=== PATIENT | male | born 1975 | race American Indian/Alaskan Native ===

== ENCOUNTER 2016-04-24 18:20 | Inpatient (IN) | payer OTHER ==
--- NOTE | 2016-04-24 18:32 | PDOC ---
Rapid Medical Evaluation Time Seen by Provider: 04/24/16 18:27 Medical Evaluation: Allergies Allergy/AdvReac Type Severity Reaction Status Date / Time No Known Allergies Allergy Verified 06/17/14 20:52 04/24/16 18:28 I have performed a brief in-person evaluation of this patient. The patient presents with a chief complaint of: lower abd pain w n/v x 5 hours. Had chicken salad 1/2 hr prior to onset Pertinent physical exam findings: vss I have ordered the following: cbc, comp, iv, ns, zofran The patient will proceed to the ED for further evaluation.
[2016-04-24] MEDS ORDERED: ONDANSETRON 4 MG/2 ML VIAL IVPUSH ONE (18:33)
[2016-04-24] MEDS ORDERED: SODIUM CHLORIDE 1,000 ML IV STA (18:33)
[2016-04-24] MEDS ORDERED: morphine CARPU-JECT 4 MG/1 ML DISP.SYRIN IVPUSH ONE ×2 (18:46→20:58)
[2016-04-24] MEDS ORDERED: ONDANSETRON 4 MG/2 ML VIAL ONE (18:47)
--- NOTE | 2016-04-24 18:48 | PDOC ---
History of Present Illness - General History Source: Patient Exam Limitations: No Limitations - History of Present Illness Initial Comments: 04/24/16 19:04 The patient is a 40 year old male, with a significant past medical history of hypertension and hyperlipidemia, who presents to the emergency department with nausea, vomiting and RLQ abdominal pain since approximately 3:30 PM this afternoon. The patient reports that he ate a salad for lunch and that his symptoms began shortly after. The patient reports multiple episodes of nonbloody nonbilious vomiting since this afternoon. The patient denies fever, chills, diarrhea, constipation or any dysuria. The patient is an employee of [employer]. Allergies: None reported. Past Surgical History: None reported. Social History: Non smoker. Denies alcohol or drug use. PCP: El Mathew <Haleigh Lopez - Last Filed: 04/25/16 01:54> - General History Source: Patient Exam Limitations: No Limitations <Juan M Orona - Last Filed: 04/25/16 02:00> - General Chief Complaint: Pain, Acute Stated Complaint: ABD PAIN Time Seen by Provider: 04/24/16 18:27 Past History <Haleigh Lopez - Last Filed: 04/25/16 01:54> - Past Medical History HTN: Yes Hypercholesterolemia: Yes - Immunization History Immunization Up to Date: Yes - Psycho/Social/Smoking Cessation Hx Anxiety: No Suicidal Ideation: No Smoking Status: No Smoking History: Never smoked Have you smoked in the past 12 months: No Number of Cigarettes Smoked Daily: 0 Information on smoking cessation initiated: No Hx Alcohol Use: No Drug/Substance Use Hx: No Substance Use Type: None <Juan M Orona - Last Filed: 04/25/16 02:00> - Past Medical History Allergies/Adverse Reactions: Allergies Allergy/AdvReac Type Severity Reaction Status Date / Time No Known Allergies Allergy Verified 04/24/16 18:30 Home Medications: Ambulatory Orders No Home Medications 0 dose .ROUTE UTDICT 02/14/12 Review of Systems - Review of Systems Able to Perform ROS?: Yes Comments:: 04/24/16 18:55 GENERAL/CONSTITUTIONAL: No fever or chills. No weakness. HEAD, EYES, EARS, NOSE AND THROAT: No change in vision. No ear pain or discharge. No sore throat. CARDIOVASCULAR: No chest pain or shortness of breath. RESPIRATORY: No cough, wheezing, or hemoptysis. GASTROINTESTINAL: +Nausea, vomiting, RLQ abdominal pain. No diarrhea or constipation. GENITOURINARY: No dysuria, frequency, or change in urination. MUSCULOSKELETAL: No joint or muscle swelling or pain. No neck or back pain. SKIN: No rash. NEUROLOGIC: No headache, vertigo, loss of consciousness, or change in strength/ sensation. ENDOCRINE: No increased thirst. No abnormal weight change. HEMATOLOGIC/LYMPHATIC: No anemia, easy bleeding, or history of blood clots. ALLERGIC/IMMUNOLOGIC: No hives or skin allergy. <Haleigh Lopez - Last Filed: 04/25/16 01:54> *Physical Exam - Vital Signs Last Vital Signs Temp Pulse Resp BP Pulse Ox 97.9 F 99 H 18 132/111 100 04/24/16 18:31 04/24/16 18:31 04/24/16 18:31 04/24/16 18:31 04/24/16 18:31 - Physical Exam Comments: 04/24/16 18:54 GENERAL: Uncomfortable appearing. Awake, alert, and fully oriented. HEAD: No signs of trauma. EYES: PERRLA, EOMI, sclera anicteric, conjunctiva clear. ENT: Auricles normal inspection, hearing grossly normal, nares patent, oropharynx clear without exudates. Moist mucosa. NECK: Normal ROM, supple, no lymphadenopathy, JVD, or masses. LUNGS: Breath sounds equal, clear to auscultation bilaterally. No wheezes, and no crackles. HEART: Regular rate and rhythm, normal S1 and S2, no murmurs, rubs or gallops. ABDOMEN: RLQ tenderness to palpation, suprapubic tenderness to palpation. Soft, normoactive bowel sounds. No guarding, no rebound. No masses. EXTREMITIES: Normal range of motion, no edema. No clubbing or cyanosis. No cords , erythema, or tenderness. NEUROLOGICAL: Cranial nerves II through XII intact. Normal speech, normal gait. SKIN: Warm, dry, normal turgor, no rashes or lesions noted. <Haleigh Lopez - Last Filed: 04/25/16 01:54> - Vital Signs Last Vital Signs Temp Pulse Resp BP Pulse Ox 97.9 F 99 H 18 132/111 100 04/24/16 18:31 04/24/16 18:31 04/24/16 18:31 04/24/16 18:31 04/24/16 18:31 <Juan M Orona - Last Filed: 04/25/16 02:00> ED Treatment Course - LABORATORY CBC & Chemistry Diagram: 04/24/16 18:50 04/25/16 01:10 <Haleigh Lopez - Last Filed: 04/25/16 01:54> - LABORATORY CBC & Chemistry Diagram: 04/24/16 18:50 04/25/16 01:10 - RADIOLOGY Radiology Studies Ordered: Category Date Time Status ABDOMEN & PELVIS CT WITH CONTR [CT] Stat CT Scan 04/24/16 18:46 Ordered <Juan M Orona - Last Filed: 04/25/16 02:00> Medical Decision Making - Medical Decision Making 04/24/16 23:37 EXAM: CT/ABDOMEN & PELVIS CT W/O CONTR Reviewed By: Dr. Chivo Still IMPRESSION: No inflammatory process identified in the abdomen or pelvis. No abdominal mass, adenopathy or collection seen. No obstructing urinary tract calculi or evidence of urinary tract obstruction seen. EXAM: CT/ABDOMEN & PELVIS CT W/O CONTR Reviewed By: Dr. Brandon Ceballos IMPRESSION: Stranding of the perinephric fat, bilaterally which is nonspecific and may be chronic. There is no evidence of hydroureteronephrosis, renal or ureteral stone, bilaterally. Mild stranding/mesenteric edema in the lower abdomen versus artifacts. Call placed to Dr. Mathew at 01:53. Connected and case discussed. <Haleigh Lopez - Last Filed: 04/25/16 01:54> - Medical Decision Making 04/24/16 18:47 A portion of this note was documented by scribe services under my direction. I have reviewed the details of the note, within reason, and agree with the documentation with the following case summary and management plan written by me. Patient treated in the ED. Nursing notes are reviewed and incorporated into the medical decision-making. Vital signs reviewed. Peripheral IV access obtained by the nurse, laboratory studies are drawn and sent, reviewed and interpreted by myself. Vital Signs Temp Pulse Resp BP Pulse Ox 97.9 F 99 H 18 132/111 100 04/24/16 18:31 04/24/16 18:31 04/24/16 18:31 04/24/16 18:31 04/24/16 18:31 40-year-old male with past medical history of hypertension, hyperlipidemia, employed at [employer], presents with lower abdominal pain with nausea and vomiting after eating salad today. Denies fevers, chills. Reports poor appetite. Denies diarrhea. Denies prior abdominal history. Differential includes acute appendicitis versus gastroenteritis versus food poisoning. We'll obtain labs, CAT scan abdomen pelvis, sent to control and reassess. 04/25/16 01:25 CBC, BMP 04/24/16 18:50 CMP Sodium 137 mmol/L (136-145) 04/24/16 18:50 Potassium 3.3 mmol/L (3.5-5.1) L 04/24/16 18:50 Chloride 100 mmol/L (98-107) 04/24/16 18:50 Carbon Dioxide 31 mmol/L (21-32) 04/24/16 18:50 Anion Gap 6 (8-16) L 04/24/16 18:50 BUN 24 mg/dL (7-18) H D 04/24/16 18:50 Creatinine 1.9 mg/dL (0.7-1.3) H D 04/24/16 18:50 Creat Clearance w eGFR 39.07 (>60) 04/24/16 18:50 Random Glucose 113 mg/dL (74-106) H 04/24/16 18:50 Calcium 8.9 mg/dL (8.5-10.1) 04/24/16 18:50 Magnesium 2.3 mg/dL (1.8-2.4) 04/24/16 18:50 Total Bilirubin 0.5 mg/dL (0.2-1.0) D 04/24/16 18:50 AST 24 U/L (15-37) 04/24/16 18:50 ALT 44 U/L (12-78) 04/24/16 18:50 Alkaline Phosphatase 51 U/L (45-117) 04/24/16 18:50 Total Protein 7.6 g/dl (6.4-8.2) 04/24/16 18:50 Albumin 4.2 g/dl (3.4-5.0) 04/24/16 18:50 Lipase 173 U/L (73-393) 04/24/16 18:50 Urine Test Results Urine Color Colorless 04/24/16 21:09 Urine Appearance Clear 04/24/16 21:09 Urine pH 6.0 (5.0-8.0) 04/24/16 21:09 Ur Specific Palms 1.003 (1.001-1.035) 04/24/16 21:09 Urine Protein 1+ (NEGATIVE) H 04/24/16 21:09 Urine Glucose (UA) Negative (NEGATIVE) 04/24/16 21: Urine Ketones Negative (NEGATIVE) 04/24/16 21: Urine Blood 1+ (NEGATIVE) H 04/24/16 21: Urine Nitrite Negative (NEGATIVE) 04/24/16 21: Urine Bilirubin Negative (NEGATIVE) 04/24/16 21:09 Ur Leukocyte Esterase Negative (NEGATIVE) 04/24/16 21:09 Urine RBC 1 /hpf (0-3) 04/24/16 21: Urine WBC <1 /hpf (3-5) 04/24/16 21:09 04/25/16 01:26 CT scan demonstrates stranding of the perinephric fat, bilaterally which is nonspecific and may be chronic. No evidence of hydroureteronephrosis, renal or ureteral stone, bilaterally. Mild stranding, mesenteric edema in the lower abdomen versus artifacts. There is no clear cut diagnosis to the patient's symptoms at this time. Perhaps it could be gastroenteritis. However, the most notable finding is the pt's cr is 1.9, concerning for acute renal injury. Perhaps this could be from hypovolemia 2/2 to vomiting. 2L of IVF was ordered and repeat CMP was ordered to reassess kidney function. If the creatinine remains elevated, we will admit the patient to the hospital for further evaluation. 04/25/16 01:59 Repeat Creatinine is 2.2 Case was discussed with Dr. Mathew. She accepts patient to her service for med/surg admission for acute renal insufficiency. Case discussed in detail with admitting physician including history, physical exam and ancillary studies. Admitting physician has assumed care for the patient, will follow all pending diagnostics and will complete the evaluation and treatment. <Juan M Orona - Last Filed: 04/25/16 02:00> *DC/Admit/Observation/Transfer - Attestations Scribe Attestion: 04/24/16 18:53 Documentation prepared by Haleigh Lopez, acting as biomedical equipment specialist for Juan M Orona MD. <Haleigh Lopez - Last Filed: 04/25/16 01:54> - Discharge Dispostion Admit: Yes <Juan M Orona - Last Filed: 04/25/16 02:00> Diagnosis at time of Disposition: Acute renal failure Qualifiers: Acute renal failure type: unspecified Qualified Code(s): N17.9 - Acute kidney failure, unspecified - Discharge Dispostion Condition at time of disposition: Stable - Referrals Referrals: Luis Daniel Mathew MD [Primary Care Provider] -
[2016-04-24] MEDS ORDERED: morphine CARPU-JECT 4 MG/1 ML DISP.SYRIN ONE ×2 (19:17→21:00)
[2016-04-24 19:28] LABS: ALBUMIN 4.2 g/dl (3.4-5.0); BILIRUBIN,TOTAL 0.5 mg/dL (0.2-1.0); CALCIUM 8.9 mg/dL (8.5-10.1); CREATININE 1.9 mg/dL (0.7-1.3); MAGNESIUM 2.3 mg/dL (1.8-2.4); TOT PROT 7.6 g/dl (6.4-8.2)
[2016-04-24 19:43] LABS: BASOPHIL 0.4 % (0-2.0); MCH 32.7 pg (25.7-33.7); MCHC 34.2 g/dl (32.0-35.9); MEAN CELL VOLUME 95.6 fl (80-96); MEAN PLT VOLUME 8.6 fl (7.5-11.1); NEUTROPHILS 73.2 % (42.8-82.8); PLATELET COUNT 209 K/MM3 (134-434); RDW 12.8 % (11.9-15.9); WHITE BLOOD COUNT 11.4 K/mm3 (4.0-10.0)
[2016-04-24 21:20] LABS: URINE APPEARANCE CLEAR; URINE BILIRUBIN NEGATIVE (NEGATIVE); URINE COLOR COLORLESS; URINE GLUCOSE (UA) NEGATIVE (NEGATIVE); URINE KETONE NEGATIVE (NEGATIVE); URINE LEUK ESTERASE NEGATIVE (NEGATIVE); URINE NITRITE NEGATIVE (NEGATIVE); URINE UROBILINOGEN NEGATIVE E.U./dl (0.2-1.0)
[2016-04-24 21:48] LABS: URINE BLOOD 1+ (NEGATIVE); URINE PROTEIN 1+ (NEGATIVE)
[2016-04-24 21:52] LABS: URINE RBC 1 /hpf (0-3); URINE WBC <1 /hpf (3-5)
[2016-04-25] MEDS ORDERED: SODIUM CHLORIDE 1,000 ML IV STA
[2016-04-25] MEDS ORDERED: ACETAMINOPHEN 1000 MG/100 ML VIAL (NON FORMULARY) IVPB ONE (00:22)
[2016-04-25] MEDS ORDERED: ACETAMINOPHEN INJECTION 100 ML IVPB ONE (00:28)
[2016-04-25] MEDS ORDERED: MAG HYDROX/AL HYDROX/SIMETH 30 ML UNIT-DOSE CUP PO ONE (01:27)
[2016-04-25] MEDS ORDERED: FAMOTIDINE 20 MG/50 ML IVPB 50 ML IVPB ONE ×2 (01:27→01:39)
[2016-04-25] MEDS ORDERED: MAG HYDROX/AL HYDROX/SIMETH 30 ML UNIT-DOSE CUP ONE (01:39)
[2016-04-25 01:46] LABS: ALBUMIN 3.4 g/dl (3.4-5.0); BILIRUBIN,TOTAL 0.6 mg/dL (0.2-1.0); CALCIUM 7.9 mg/dL (8.5-10.1); CREATININE 2.2 mg/dL (0.7-1.3); TOT PROT 6.2 g/dl (6.4-8.2)
[2016-04-25 04:23] VITALS: BMI 31.8
[2016-04-25] MEDS ORDERED: HYDROmorphone HCL CARPU-JECT 2 MG/1 ML DISP.SYRIN IVPB PRN (04:56)
[2016-04-25] MEDS ORDERED: POLYETHYLENE GLYCOL 3350 119 GM BTL PO PRN (04:56)
[2016-04-25] MEDS ORDERED: DEXTROSE 5%-0.45% SALINE 1,000 ML IV SCH (05:00)
[2016-04-25 09:40] LABS: MCH 32.8 pg (25.7-33.7); MCHC 34.1 g/dl (32.0-35.9); MEAN CELL VOLUME 96.2 fl (80-96); MEAN PLT VOLUME 8.3 fl (7.5-11.1); PLATELET COUNT 195 K/MM3 (134-434); RDW 12.2 % (11.9-15.9)
[2016-04-25 09:54] LABS: ALBUMIN 3.3 g/dl (3.4-5.0); BILIRUBIN,TOTAL 0.6 mg/dL (0.2-1.0); CALCIUM 7.9 mg/dL (8.5-10.1); CREATININE 2.4 mg/dL (0.7-1.3); TOT PROT 6.3 g/dl (6.4-8.2)
[2016-04-25] MEDS: amLODIPine BESYLATE 5 MG TABLET (FP) PO SCH (10:08)
--- NOTE | 2016-04-25 10:41 | CONSULT ---
Consult Consult Specialty:: Nephrology ( Drs. Butler/ blanca) Referred by:: Dr. Mathew Reason for Consultation:: 40 y/o male with h/o Hypertension, known to our service, admitted with severe acute abdominal pain, vomiting, and Acute Kidney failure. The patient went for Gym exercise yesterday after which he ate home- made salad, immediately followed by vomiting and acute abdominal pain. Vomiting did not improve the pain. he did not see any blood in the urine, but had bilateral abdominal and flank pains. No h/o ETOH, NSAIDS or any weight/ exercise related drugs - History of Present Illness Chief Complaint: Severe abdominal pain, voimiting, NISHA - History Source History Provided By: Patient, Medical Record Limitations to Obtaining History: No Limitations - Past Medical History Cardio/Vascular: Yes: HTN, Hyperlipdemia Pulmonary: No: Asthma, Bronchitis, Cancer, COPD, O2 Dependent, Pneumonia, Previously Intubated, Pulmonary Embolus, Pulmonary Fibrosis, Sleep Apnea, Other Gastrointestinal: Yes: Other (Severe acute abdominal pain) Renal/: Yes: Renal Failure Psych: No: Addictions Endocrine: Yes: Toombs's Disease. No: Diabetes Mellitus - Alcohol/Substance Use Hx Alcohol Use: No - Smoking History Smoking history: Never smoked Have you smoked in the past 12 months: No Aproximately how many cigarettes per day: 0 Home Medications - Allergies Allergies/Adverse Reactions: Allergies Allergy/AdvReac Type Severity Reaction Status Date / Time No Known Allergies Allergy Verified 04/24/16 18:30 - Home Medications Home Medications: Ambulatory Orders No Home Medications 0 dose .ROUTE UTDICT 02/14/12 Review of Systems - Review of Systems Constitutional: reports: Weakness Eyes: reports: No Symptoms Neck: reports: No Symptoms Cardiovascular: denies: Chest Pain, Shortness of Breath Respiratory: denies: Cough Gastrointestinal: reports: Abdominal Pain, Constipation, Vomiting Genitourinary: denies: Hematuria Musculoskeletal: reports: Back Pain Neurological: reports: Weakness Psychiatric: reports: Anxiety Physical Exam Vital Signs: Vital Signs Temperature 98.1 F 04/25/16 06:00 Pulse Rate 76 04/25/16 06:00 Respiratory Rate 18 04/25/16 06:00 Blood Pressure 149/99 04/25/16 06:00 O2 Sat by Pulse Oximetry (%) 99 04/25/16 04:26 Constitutional: Yes: Anxious, Mild Distress HENT: Yes: Normocephalic Neck: Yes: Trachea Midline Cardiovascular: Yes: Regular Rate and Rhythm, S1, S2 Respiratory: Yes: Regular, CTA Bilaterally, Diminished Gastrointestinal: Yes: Hypoactive Bowel Sounds, Tenderness (diffuse), Vomiting. No: Tenderness, Rebound Renal/: No: CVA Tenderness - Left, CVA Tenderness - Right, Hematuria, Oliguria Integumentary: Yes: WNL Neurological: Yes: Alert, Oriented Psychiatric: Yes: Alert, Oriented Labs: CBC, BMP 04/25/16 09:00 04/25/16 09:00 Problem List - Problems (1) Acute renal failure Code(s): N17.9 - ACUTE KIDNEY FAILURE, UNSPECIFIED Qualifiers: Acute renal failure type: unspecified Qualified Code(s): N17.9 - Acute kidney failure, unspecified (2) Abdominal pain Code(s): R10.9 - UNSPECIFIED ABDOMINAL PAIN (3) Vomiting Code(s): R11.10 - VOMITING, UNSPECIFIED (4) Hypertension Code(s): I10 - ESSENTIAL (PRIMARY) HYPERTENSION (5) Hyperlipidemia Code(s): E78.5 - HYPERLIPIDEMIA, UNSPECIFIED Assessment/Plan 40 y/o male with h/o long standing Hypertension, admitted with Acute abdominal pain, vomiting and Acute Kidney Injury. It is highly likely that the patient has NISHA from Hypovolemia and renal hypoperfusion due to the Hemodynamic changes. But need to r/o other etiologic factors that could cause NISHA in this setting . Plan: Hold Hyzaar for now. Will use other agents for the BP control. Basic w/u as ordered IV fluids to continue. Will monitor the renal and electrolyte profile with you. Thanks again Georgie Butler MD
[2016-04-25] MEDS ORDERED: D5-1/2NS+20 MEQ KCL - 1,000 ML IV SCH (11:00)
[2016-04-25] MEDS ORDERED: ONDANSETRON 4 MG/2 ML VIAL IVPB PRN (12:07)
[2016-04-25] MEDS: PANTOPRAZOLE SODIUM 40 MG/100 ML PRE-DOCKED IVPB SCH (13:13)
--- NOTE | 2016-04-25 14:35 | PN ---
Progress Note (short form) - Note Progress Note: GI CONSULTATION: SEE COMPLETE DICTATION IN BRIEF 40M NO GI HX HTN/HYPERLIPIDEMIA ADMIT WITYH ACUTE ONSET OF N/V/ABD PAIN AFTER VIGOROUS GYM W/O AND CHICKEN SALAD FOR LUNCH SUSPECT GI SYMPTOMS MAY BE DUE TO RENAL FINDINGS WITH NEAR DOUBLING OF HIS CREATININE OF BASELINE ABD EXAM BENIGN/ LFT WNL CT SCAN UNREMARKBLE FOR GI FINGINS DIVERTICULOSIS WITHOUT DIVERTICULITIS DOUBT AGE NO DIARRHEA ADVANCE DIET SLOWLY AND OBSERVE PPI OK IN THIS SETTING OUR TEAM T/F WITH YOU THANKS, MD DEAN
--- NOTE | 2016-04-25 14:42 | EKG ---
Test Reason : Blood Pressure : / mmHG Vent. Rate : 068 BPM Atrial Rate : 068 BPM P-R Int : 176 ms QRS Dur : 104 ms QT Int : 424 ms P-R-T Axes : 046 024 020 degrees QTc Int : 450 ms NORMAL SINUS RHYTHM NONSPECIFIC T WAVE ABNORMALITY Confirmed by ROBIN YEE MD ([id number]) on 04/25/2016 2:41:22 PM Referred By: Jeremiah CYR Confirmed By:ROBIN YEE MD
[2016-04-25 15:50] LABS: URINE APPEARANCE CLEAR; URINE BILIRUBIN NEGATIVE (NEGATIVE); URINE COLOR COLORLESS; URINE GLUCOSE (UA) NEGATIVE (NEGATIVE); URINE KETONE NEGATIVE (NEGATIVE); URINE LEUK ESTERASE NEGATIVE (NEGATIVE); URINE NITRITE NEGATIVE (NEGATIVE); URINE PROTEIN NEGATIVE (NEGATIVE); URINE UROBILINOGEN NEGATIVE E.U./dl (0.2-1.0)
[2016-04-25 15:57] LABS: URINE BLOOD 1+ (NEGATIVE)
--- NOTE | 2016-04-25 16:04 | CONSULT ---
Consult Consult Specialty:: Surgery Referred by:: Chioma Cary Reason for Consultation:: Abdominal pain, nausea and vomiting. - History of Present Illness History of Present Illness: 40 year old man , is admitted c/o periumbilical abdominal pain , since yesterday afternoon , radiating to the back, associated with nausea and vomiting. Denies any prior episode of abdominal pain. Denies any prior abdominal surgery. Pain is radiating to the back. - History Source History Provided By: Patient Limitations to Obtaining History: No Limitations - Past Medical History Cardio/Vascular: Yes: HTN, Hyperlipdemia Pulmonary: No: Asthma, Bronchitis, Cancer, COPD, O2 Dependent, Pneumonia, Previously Intubated, Pulmonary Embolus, Pulmonary Fibrosis, Sleep Apnea, Other Gastrointestinal: Yes: Other (Severe acute abdominal pain) Renal/: Yes: Renal Failure Psych: No: Addictions Endocrine: Yes: Saline's Disease. No: Diabetes Mellitus - Alcohol/Substance Use Hx Alcohol Use: Yes (Week ends, 2 drinks.) - Smoking History Smoking history: Never smoked Have you smoked in the past 12 months: No Aproximately how many cigarettes per day: 0 Home Medications - Allergies Allergies/Adverse Reactions: Allergies Allergy/AdvReac Type Severity Reaction Status Date / Time No Known Allergies Allergy Verified 04/24/16 18:30 - Home Medications Home Medications: Ambulatory Orders No Home Medications 0 dose .ROUTE UTDICT 02/14/12 Physical Exam Vital Signs: Vital Signs Temperature 98.4 F 04/25/16 14:00 Pulse Rate 69 04/25/16 14:00 Respiratory Rate 18 04/25/16 06:00 Blood Pressure 128/70 04/25/16 14:00 O2 Sat by Pulse Oximetry (%) 99 04/25/16 04:26 Gastrointestinal: Yes: Abdomen, Obese (Central abdominal pain , mild tenderness , no rebound.) Labs: CBC, BMP 04/25/16 09:00 04/25/16 09:00 Imaging - Results Cat Scan: Report Reviewed Problem List - Problems (1) Abdominal pain, periumbilical Code(s): R10.33 - PERIUMBILICAL PAIN (2) Nausea and vomiting Code(s): R11.2 - NAUSEA WITH VOMITING, UNSPECIFIED Qualifiers: Vomiting type: bilious vomiting Qualified Code(s): R11.14 - Bilious vomiting (3) Acute renal failure Code(s): N17.9 - ACUTE KIDNEY FAILURE, UNSPECIFIED Qualifiers: Acute renal failure type: unspecified Qualified Code(s): N17.9 - Acute kidney failure, unspecified (4) Hyperlipidemia Code(s): E78.5 - HYPERLIPIDEMIA, UNSPECIFIED (5) Hypertension Code(s): I10 - ESSENTIAL (PRIMARY) HYPERTENSION Assessment/Plan Abdominal pain , radiating to the back with nausea and vomiting. R/O gallbladder calculus, cholecystitis. Acute renal failure with rising Creatinine. / Passed a gallstone. Obesity. Will do gallbladder ultrasound, Hida scan. Treatment of renal failure.
[2016-04-25 16:06] LABS: URINE BACTERIA RARE /hpf (NONE SEEN); URINE MUCUS RARE; URINE RBC 1 /hpf (0-3); URINE WBC 2 /hpf (3-5)
[2016-04-26 07:48] LABS: BASOPHIL 0.5 % (0-2.0); EOSINOPHIL 1.1 % (0-4.5); MCH 33.1 pg (25.7-33.7); MCHC 34.7 g/dl (32.0-35.9); MEAN CELL VOLUME 95.4 fl (80-96); MEAN PLT VOLUME 8.4 fl (7.5-11.1); NEUTROPHILS 75.3 % (42.8-82.8); PLATELET COUNT 203 K/MM3 (134-434); RDW 12.5 % (11.9-15.9)
[2016-04-26 08:28] LABS: ALBUMIN 3.4 g/dl (3.4-5.0); CALCIUM 8.2 mg/dL (8.5-10.1); CREATININE 2.3 mg/dL (0.7-1.3); MAGNESIUM 2.5 mg/dL (1.8-2.4); PHOSPHOROUS 2.9 mg/dL (2.5-4.9)
[2016-04-26 08:31] LABS: BILIRUBIN,TOTAL 0.7 mg/dL (0.2-1.0); TOT PROT 6.5 g/dl (6.4-8.2)
--- NOTE | 2016-04-26 10:30 | PN ---
Progress Note, Physician Chief Complaint: The patient feels much better. Abdominal pain much better. Denies any vomiting. Started some liquid diet today. Tolerated well. Had one loose BM yesterday. No fever. Maintains good urine output. GI and surgical notes noted. - Current Medication List Current Medications: Active Medications Amlodipine Besylate (Norvasc -) 5 mg PO DAILY [facility] Last Admin: 04/25/16 10:08 Dose: 5 mg Hydromorphone HCl (Dilaudid Injection -) 2 mg IVPB Q6H PRN Last Admin: 04/25/16 05:15 Dose: 2 mg Potassium Chloride/Dextrose/Sod Cl (D5-1/2ns+20 Meq Kcl -) 1,000 mls @ 100 mls/ hr IV ASDIR [facility] Last Admin: 04/25/16 11:46 Dose: 100 mls/hr Ondansetron HCl (Zofran Injection) 4 mg IVPB Q4H PRN PRN Reason: NAUSEA AND/OR VOMITING Last Admin: 04/25/16 17:54 Dose: 4 mg Pantoprazole Sodium (Protonix 40mg Ivpb (Pre-Docked)) 40 mg IVPB DAILY [facility] Last Admin: 04/25/16 13:13 Dose: 40 mg Polyethylene Glycol (Miralax (For Daily Use) -) 17 gm PO DAILY PRN - Objective Vital Signs: Vital Signs Temperature 98.2 F 04/26/16 08:33 Pulse Rate 75 04/26/16 08:33 Respiratory Rate 20 04/26/16 08:33 Blood Pressure 136/81 04/26/16 08:33 O2 Sat by Pulse Oximetry (%) 99 04/25/16 09:00 Constitutional: Yes: Calm, Anxious, Mild Distress Eyes: Yes: WNL HENT: Yes: Atraumatic Cardiovascular: Yes: Regular Rate and Rhythm, S1, S2 Respiratory: Yes: Regular, CTA Bilaterally, Diminished Gastrointestinal: Yes: Normal Bowel Sounds, Soft Extremities: Yes: WNL Neurological: Yes: Alert, Oriented Psychiatric: Yes: Alert, Oriented Labs: CBC, BMP 04/26/16 06:15 04/26/16 06:15 Problem List - Problems (1) Acute renal failure Code(s): N17.9 - ACUTE KIDNEY FAILURE, UNSPECIFIED Qualifiers: Acute renal failure type: unspecified Qualified Code(s): N17.9 - Acute kidney failure, unspecified (2) Abdominal pain Code(s): R10.9 - UNSPECIFIED ABDOMINAL PAIN (3) Vomiting Code(s): R11.10 - VOMITING, UNSPECIFIED (4) Hypertension Code(s): I10 - ESSENTIAL (PRIMARY) HYPERTENSION (5) Hyperlipidemia Code(s): E78.5 - HYPERLIPIDEMIA, UNSPECIFIED Assessment/Plan 40 y/o male with h/o long standing Hypertension, admitted with Acute abdominal pain, vomiting and Acute Kidney Injury. So far no evidence of improvement of azotemia, but the azotemia iends to be plateauing. It is highly likely that the patient has NISHA from Hypovolemia and renal hypoperfusion due to the Hemodynamic changes. Work up so far negative.. Plan: Results of the sonographic studies awaited. IV fluids to continue. Will monitor the renal and electrolyte profile with you. Thanks again Georgie Butler MD
[2016-04-26] MEDS: PANTOPRAZOLE SODIUM 40 MG/100 ML PRE-DOCKED IVPB SCH (10:40)
[2016-04-26] MEDS: amLODIPine BESYLATE 5 MG TABLET (FP) PO SCH (10:41)
[2016-04-26] MEDS: D5-1/2NS+40 MEQ KCL - 1,000 ML IV SCH (13:22)
--- NOTE | 2016-04-26 13:45 | PN ---
Progress Note, Physician Chief Complaint: Pt lying comfortably in bed Abdominal pain improved,no vomiting Had bowel movement Ultrasound Result pending Creatinine level trending down - Current Medication List Current Medications: Active Medications Amlodipine Besylate (Norvasc -) 5 mg PO DAILY [facility] Last Admin: 04/26/16 10:41 Dose: 5 mg Hydromorphone HCl (Dilaudid Injection -) 2 mg IVPB Q6H PRN Last Admin: 04/25/16 05:15 Dose: 2 mg Dextrose/Sodium Chloride (D5-1/2ns+40 Meq Kcl -) 1,000 mls @ 75 mls/hr IV ASDIR [facility] Last Admin: 04/26/16 13:22 Dose: 75 mls/hr Ondansetron HCl (Zofran Injection) 4 mg IVPB Q4H PRN PRN Reason: NAUSEA AND/OR VOMITING Last Admin: 04/25/16 17:54 Dose: 4 mg Pantoprazole Sodium (Protonix 40mg Ivpb (Pre-Docked)) 40 mg IVPB DAILY [facility] Last Admin: 04/26/16 10:40 Dose: 40 mg Polyethylene Glycol (Miralax (For Daily Use) -) 17 gm PO DAILY PRN - Objective Vital Signs: Vital Signs Temperature 98.2 F 04/26/16 08:33 Pulse Rate 75 04/26/16 08:33 Respiratory Rate 20 04/26/16 08:33 Blood Pressure 136/81 04/26/16 08:33 O2 Sat by Pulse Oximetry (%) 100 04/26/16 09:00 Constitutional: Yes: No Distress Eyes: Yes: Conjunctiva Clear HENT: Yes: Atraumatic, Normocephalic Neck: Yes: WNL Cardiovascular: Yes: WNL Respiratory: Yes: Regular, CTA Bilaterally Gastrointestinal: Yes: Normal Bowel Sounds, Soft Musculoskeletal: Yes: WNL Extremities: Yes: WNL Edema: No Peripheral Pulses WNL: Yes Neurological: Yes: WNL, Alert, Oriented ...Motor Strength: WNL Psychiatric: Yes: WNL, Alert, Oriented Labs: CBC, BMP 04/26/16 06:15 04/26/16 06:15 - ....Imaging Ultrasound: Pending Assessment/Plan ARF ? due to dehdration Abdominal pain improved vomiting resolved HTN Hypercholestrolemia PLAN Hydration Monitor Creatinine Advance diet as tolerated will f/u renal rec will f/u sonogram report
[2016-04-26 14:23] LABS: URINE APPEARANCE CLEAR; URINE BILIRUBIN NEGATIVE (NEGATIVE); URINE BLOOD 2+ (NEGATIVE); URINE COLOR COLORLESS; URINE GLUCOSE (UA) NEGATIVE (NEGATIVE); URINE KETONE NEGATIVE (NEGATIVE); URINE LEUK ESTERASE NEGATIVE (NEGATIVE); URINE NITRITE NEGATIVE (NEGATIVE); URINE PROTEIN NEGATIVE (NEGATIVE); URINE UROBILINOGEN NEGATIVE E.U./dl (0.2-1.0)
[2016-04-26 14:27] LABS: URINE WBC 1 /hpf (3-5)
--- NOTE | 2016-04-26 18:54 | HP ---
DATE OF ADMISSION: 04/25/2016 Patient is a 40-year-old male with a past medical history of hypertension and hyperlipidemia, presented to the emergency department with the complaints of nausea, vomiting and right lower quadrant pain approximately 3:30 p.m. yesterday afternoon after he had a lunch of chicken salad and spinach. One hour after the lunch, patient reported multiple episodes of nonbloody bilious vomiting and abdominal pain with cramping. No urinary symptoms. Patient did not move the bowels yesterday. No fever. No history of any recent travel. No history of vomiting in the past. ALLERGIES: Nothing significant. SURGICAL HISTORY: Nothing significant. MEDICATIONS: Patient is on Hyzaar. MEDICAL HISTORY: Hypertension, hyperlipidemia. SOCIAL HISTORY: Nonsmoker. Denies alcohol and drugs. Patient lives with the family. REVIEW OF SYSTEMS: Constitutional: No fever, no chills, no weakness. Head and Neck: No changes in vision, no headache. Cardiovascular: No chest pain, no shortness of breath. Respiratory: No coughing, no wheezing. Gastrointestinal: Abdominal pain, nausea, vomiting. No diarrhea, mainly constipation present. Genitourinary: No history of any urinary frequency or dysuria. Musculoskeletal: Nothing significant. Neurological: No headache, no vertigo, no loss of consciousness. Endocrine: No history of any thirst. PHYSICAL EXAMINATION: Vital Signs: Temperature 97.9, pulse 76, blood pressure 149/99, respirations 18. Head and Neck: Normal. Neck: Supple. No JVD. Chest: Clear. Cardiovascular: First and second sounds normal. Abdomen: Soft. No tenderness, no distention. Bowel sounds present. Extremities: No edema. Central Nervous System: Alert, oriented x3. No apparent motor or sensory deficit. Reflex normal. Regarding labs, CBC: WBC 11.4, hemoglobin 13.8, hematocrit 40.4, platelets 209. Comprehensive panel: Sodium 137, potassium 3.3, chloride 100, bicarbonate 31, BUN 29, creatinine 1.9, sugar 113. ALT and AST normal. Lipase 173. Urine shows protein 1+, blood 1+, WBCs 1. On repeat labs, the comprehensive shows the sodium 139, potassium 3.6, chloride 104, bicarbonate 25, BUN 23, creatinine 2.2, sugar 121. AST and ALT normal. Patient admitted to the floor with the admitting diagnoses of: 1. Acute renal insufficiency. 2. Acute abdominal pain. 3. Constipation. CAT scan of the abdomen and pelvis done. It showed stranding of the perinephric fat, which is nonspecific. No nephrolithiasis. No renal or ureteric stone. Mild stranding and mesenteric edema in the lower abdomen versus artifact. PLAN: Patient kept n.p.o., repeat labs, IV fluid started. Renal, Gastroenterology, and Surgery consults called. Patient stable on the floor. Huber [id number]
[2016-04-27] MEDS: D5-1/2NS+40 MEQ KCL - 1,000 ML IV SCH ×2 (02:13→17:21)
--- NOTE | 2016-04-27 08:53 | PN ---
Progress Note, Physician Chief Complaint: Pt lying comfortably in bed c/o cough Abdominal pain improved,no vomiting Had bowel movement abdominal,renal and bladder ultrasound NL Creatinine level pending - Current Medication List Current Medications: Active Medications Amlodipine Besylate (Norvasc -) 5 mg PO DAILY [facility] Last Admin: 04/26/16 10:41 Dose: 5 mg Hydromorphone HCl (Dilaudid Injection -) 2 mg IVPB Q6H PRN Last Admin: 04/25/16 05:15 Dose: 2 mg Dextrose/Sodium Chloride (D5-1/2ns+40 Meq Kcl -) 1,000 mls @ 75 mls/hr IV [facility] Last Admin: 04/27/16 02:13 Dose: 75 mls/hr Ondansetron HCl (Zofran Injection) 4 mg IVPB Q4H PRN PRN Reason: NAUSEA AND/OR VOMITING Last Admin: 04/25/16 17:54 Dose: 4 mg Pantoprazole Sodium (Protonix 40mg Ivpb (Pre-Docked)) 40 mg IVPB DAILY [facility] Last Admin: 04/26/16 10:40 Dose: 40 mg Polyethylene Glycol (Miralax (For Daily Use) -) 17 gm PO DAILY PRN - Objective Vital Signs: Vital Signs Temperature 98.5 F 04/27/16 06:12 Pulse Rate 74 04/27/16 06:12 Respiratory Rate 20 04/27/16 06:12 Blood Pressure 148/92 04/27/16 06:12 O2 Sat by Pulse Oximetry (%) 100 04/26/16 21:00 Constitutional: Yes: No Distress Eyes: Yes: Conjunctiva Clear HENT: Yes: Atraumatic, Normocephalic Neck: Yes: WNL Cardiovascular: Yes: Regular Rate and Rhythm Respiratory: Yes: Regular, CTA Bilaterally Gastrointestinal: Yes: Normal Bowel Sounds, Soft Musculoskeletal: Yes: WNL Extremities: Yes: WNL Edema: No Peripheral Pulses WNL: Yes Neurological: Yes: WNL, Alert, Oriented ...Motor Strength: WNL Psychiatric: Yes: Alert, Oriented Assessment/Plan ARF ? due to dehdration Abdominal pain improved vomiting resolved HTN Hypercholestrolemia cough PLAN Hydration Monitor Creatinine NPO for HIDA scan will f/u renal rec chest x ray
[2016-04-27 09:04] LABS: ALBUMIN 3.3 g/dl (3.4-5.0); BILIRUBIN,TOTAL 0.6 mg/dL (0.2-1.0); CALCIUM 8.7 mg/dL (8.5-10.1); CREATININE 1.9 mg/dL (0.7-1.3); TOT PROT 6.4 g/dl (6.4-8.2)
[2016-04-27 09:07] LABS: BASOPHIL 0.5 % (0-2.0); EOSINOPHIL 1.4 % (0-4.5); MCH 32.5 pg (25.7-33.7); MCHC 33.8 g/dl (32.0-35.9); MEAN CELL VOLUME 96.3 fl (80-96); MEAN PLT VOLUME 8.4 fl (7.5-11.1); NEUTROPHILS 68.9 % (42.8-82.8); PLATELET COUNT 201 K/MM3 (134-434); RDW 12.2 % (11.9-15.9); WHITE BLOOD COUNT 7.3 K/mm3 (4.0-10.0)
[2016-04-27] MEDS: PANTOPRAZOLE SODIUM 40 MG/100 ML PRE-DOCKED IVPB SCH (10:43)
[2016-04-27] MEDS: amLODIPine BESYLATE 5 MG TABLET (FP) PO SCH (10:43)
[2016-04-27 13:09] LABS: URINE CREATININE 51.5 mg/dL
--- NOTE | 2016-04-27 13:47 | PN ---
Progress Note, Physician - Current Medication List Current Medications: Active Medications Amlodipine Besylate (Norvasc -) 5 mg PO DAILY [facility] Last Admin: 04/27/16 10:43 Dose: 5 mg Hydromorphone HCl (Dilaudid Injection -) 2 mg IVPB Q6H PRN Last Admin: 04/25/16 05:15 Dose: 2 mg Dextrose/Sodium Chloride (D5-1/2ns+40 Meq Kcl -) 1,000 mls @ 75 mls/hr IV ASDIR [facility] Last Admin: 04/27/16 02:13 Dose: 75 mls/hr Ondansetron HCl (Zofran Injection) 4 mg IVPB Q4H PRN PRN Reason: NAUSEA AND/OR VOMITING Last Admin: 04/25/16 17:54 Dose: 4 mg Pantoprazole Sodium (Protonix 40mg Ivpb (Pre-Docked)) 40 mg IVPB DAILY [facility] Last Admin: 04/27/16 10:43 Dose: 40 mg Polyethylene Glycol (Miralax (For Daily Use) -) 17 gm PO DAILY PRN - Objective Vital Signs: Vital Signs Temperature 98.5 F 04/27/16 10:00 Pulse Rate 84 04/27/16 10:00 Respiratory Rate 18 04/27/16 10:00 Blood Pressure 151/87 04/27/16 10:00 O2 Sat by Pulse Oximetry (%) 99 04/27/16 09:00 Labs: CBC, BMP 04/27/16 06:15 04/27/16 06:15 Problem List - Problems (1) Abdominal pain, periumbilical Code(s): R10.33 - PERIUMBILICAL PAIN (2) Nausea and vomiting Code(s): R11.2 - NAUSEA WITH VOMITING, UNSPECIFIED Qualifiers: Vomiting type: bilious vomiting Qualified Code(s): R11.14 - Bilious vomiting (3) Acute renal failure Code(s): N17.9 - ACUTE KIDNEY FAILURE, UNSPECIFIED Qualifiers: Acute renal failure type: unspecified Qualified Code(s): N17.9 - Acute kidney failure, unspecified (4) Hyperlipidemia Code(s): E78.5 - HYPERLIPIDEMIA, UNSPECIFIED (5) Hypertension Code(s): I10 - ESSENTIAL (PRIMARY) HYPERTENSION Assessment/Plan surgery: Patient is comfortable, has pain in abdomen on coughing. Abdomen is soft , not tender. Gallbladder ultrasound is normal, no gallstones, normal size common bile duct, no signs of cholecystitis. Will cancel HIDA scan. Creatinine 1.9 He is being hydrated. No acute surgical condition , contributing for the abdominal pain. Consider upper endoscopy when stable. discussed with Dr. Mathew.
[2016-04-27] MEDS ORDERED: amLODIPine BESYLATE 5 MG TABLET (FP) PO ONE (15:00)
--- NOTE | 2016-04-27 16:37 | PN ---
GI Progress Note Subjective: No acute events No abdominal pain Presented as N/V/D which have resolved - Objective Vital Signs: Vital Signs Temperature 98.6 F 04/27/16 14:49 Pulse Rate 63 04/27/16 14:49 Respiratory Rate 18 04/27/16 14:49 Blood Pressure 140/96 04/27/16 14:49 O2 Sat by Pulse Oximetry (%) 99 04/27/16 09:00 Constitutional: Calm Eyes: No: Sclera Icterus Cardiovascular: Yes: Regular Rate and Rhythm Respiratory: Yes: CTA Bilaterally Gastrointestinal Inspection: No: Distention ...Auscultate: Yes: Normoactive Bowel Sounds ...Palpate: No: Tenderness Edema: No Neurological: Yes: Alert, Oriented Labs: CBC, BMP 04/27/16 06:15 04/27/16 06:15 Problem List - Problems (1) Gastroenteritis Assessment/Plan: With dehydration. Renal function improving and being evaluated by renal Symptomatically improved Continue advancement of diet as tolerated and monitor clinically recall as needed Code(s): K52.9 - NONINFECTIVE GASTROENTERITIS AND COLITIS, UNSPECIFIED
--- NOTE | 2016-04-27 16:51 | PN ---
Progress Note (short form) - Note Progress Note: Renal Follow up for NISHA Pt seen and examined at the bedside no acute compalints no further N/V had loose BM this am no sob or chest pain tolerating diet Vital Signs Temperature 99.6 F 04/27/16 17:22 Pulse Rate 66 04/27/16 17:22 Respiratory Rate 20 04/27/16 17:22 Blood Pressure 145/84 04/27/16 17:22 O2 Sat by Pulse Oximetry (%) 99 04/27/16 09:00 Gen: NAD, wake and alert HEENT: NC/AT, MMM, No JVD CVS: RRR Lungs: CTA Abd: soft NT/ND ext: no edema CBC, BMP 04/27/16 06:15 04/27/16 06:15 Current Medications Amlodipine Besylate (Norvasc -) 10 mg PO DAILY [facility] Guaifenesin (Robitussin -) 10 ml PO Q6H PRN Last Admin: 04/27/16 17:36 Dose: 10 ml Hydromorphone HCl (Dilaudid Injection -) 2 mg IVPB Q6H PRN Last Admin: 04/25/16 05:15 Dose: 2 mg Dextrose/Sodium Chloride (D5-1/2ns+40 Meq Kcl -) 1,000 mls @ 75 mls/hr IV ASDIR [facility] Last Admin: 04/27/16 17:21 Dose: 75 mls/hr Ondansetron HCl (Zofran Injection) 4 mg IVPB Q4H PRN PRN Reason: NAUSEA AND/OR VOMITING Last Admin: 04/25/16 17:54 Dose: 4 mg Pantoprazole Sodium (Protonix 40mg Ivpb (Pre-Docked)) 40 mg IVPB DAILY [facility] Last Admin: 04/27/16 10:43 Dose: 40 mg Polyethylene Glycol (Miralax (For Daily Use) -) 17 gm PO DAILY PRN A/P 40 year old [place] with PMhx of HTN presented with complaints of Abd pain and N/V and found to have NISHA. #Acute Kidney injury secondary to volume contraction + ARB Renal function with mild improvement on IVF continue current fluids for additional 24 hours check urine studies for feNa, UPCR Avoid NSAIDS, FRANCO/ARB for now Trend BUN/cr and electrolytes PO diet as tolerated Bang Etienne DO
[2016-04-27] MEDS: guaiFENesin 200 MG/10 ML 10 ML UNIT-DOSE CUPS PO PRN (17:36)
[2016-04-28] MEDS: D5-1/2NS+40 MEQ KCL - 1,000 ML IV SCH (06:33)
[2016-04-28 07:59] LABS: BASOPHIL 0.7 % (0-2.0); EOSINOPHIL 2.2 % (0-4.5); MCH 32.9 pg (25.7-33.7); MCHC 34.5 g/dl (32.0-35.9); MEAN CELL VOLUME 95.5 fl (80-96); MEAN PLT VOLUME 8.1 fl (7.5-11.1); NEUTROPHILS 68.6 % (42.8-82.8); PLATELET COUNT 221 K/MM3 (134-434); RDW 11.9 % (11.9-15.9); WHITE BLOOD COUNT 6.2 K/mm3 (4.0-10.0)
[2016-04-28] MEDS: amLODIPine BESYLATE 10 MG TABLET (FP) PO SCH ×2 (08:20→11:30)
[2016-04-28] MEDS: guaiFENesin 200 MG/10 ML 10 ML UNIT-DOSE CUPS PO PRN (08:20)
[2016-04-28 08:30] LABS: ALBUMIN 3.4 g/dl (3.4-5.0); BILIRUBIN,TOTAL 0.4 mg/dL (0.2-1.0); CALCIUM 9.1 mg/dL (8.5-10.1); CREATININE 1.6 mg/dL (0.7-1.3); PHOSPHOROUS 4.2 mg/dL (2.5-4.9); TOT PROT 6.6 g/dl (6.4-8.2)
[2016-04-28] MEDS: PANTOPRAZOLE SODIUM 40 MG/100 ML PRE-DOCKED IVPB SCH (09:29)
--- NOTE | 2016-04-28 10:17 | PN ---
Progress Note (short form) - Note Progress Note: Renal Follow up for NISHA Pt seen and examined at the bedside no acute compalints Vital Signs Temperature 99 F 04/28/16 07:51 Pulse Rate 66 04/28/16 07:51 Respiratory Rate 20 04/28/16 07:51 Blood Pressure 150/89 04/28/16 07:51 O2 Sat by Pulse Oximetry (%) 99 04/27/16 21:00 Intake & Output 04/25/16 04/26/16 04/27/16 04/28/16 22:59 23:59 23:59 23:59 Intake Total 2275 900 Balance 2275 900 Weight Gen: NAD, wake and alert HEENT: NC/AT, MMM, No JVD CVS: RRR Lungs: CTA Abd: soft NT/ND ext: no edema CBC, BMP 04/28/16 06:30 04/28/16 06:30 Current Medications Amlodipine Besylate (Norvasc -) 10 mg PO DAILY [facility] Last Admin: 04/28/16 08:20 Dose: 10 mg Guaifenesin (Robitussin -) 10 ml PO Q6H PRN Last Admin: 04/28/16 08:20 Dose: 10 ml Hydromorphone HCl (Dilaudid Injection -) 2 mg IVPB Q6H PRN Last Admin: 04/25/16 05:15 Dose: 2 mg Ondansetron HCl (Zofran Injection) 4 mg IVPB Q4H PRN PRN Reason: NAUSEA AND/OR VOMITING Last Admin: 04/25/16 17:54 Dose: 4 mg Pantoprazole Sodium (Protonix 40mg Ivpb (Pre-Docked)) 40 mg IVPB DAILY [facility] Last Admin: 04/28/16 09:29 Dose: 40 mg Polyethylene Glycol (Miralax (For Daily Use) -) 17 gm PO DAILY PRN A/P 40 year old [place] with PMhx of HTN presented with complaints of Abd pain and N/V and found to have NISHA. #Acute Kidney injury secondary to volume contraction + ARB Renal function improving maintain off ARB for now d/c IVF today as pt is tolerating oral diet will follow up in the office on discharge #Hypertension BP slightly above gaol continue amlodpine for now if remains elevated can add BB like atenolol ok for discharge from renal perspective with outpatient follow up Bang Etienne DO
--- NOTE | 2016-04-28 11:20 | CONS ---
DATE OF CONSULTATION: 04/25/2016 GASTROENTEROLOGY CONSULTATION HISTORY OF PRESENT ILLNESS: I was asked by Dr. Juan M Orona to evaluate the patient for abdominal pain and vomiting. The patient is a 40-year-old male from [place] who has a past medical history of hypertension and hyperlipidemia. He says he has had no prior GI distress or GI issues in the past. Apparently yesterday after lunch, about an hour after eating some chicken salad, he had the onset of hypogastric abdominal pain, nausea, and onset of vomiting. He did not have any fevers, chills, or sweats. He did not have any diarrhea. He did not have any black, tarry stools or hematemesis. He then had pain that radiated to each side and to the left flank and the right flank and over to the back. He was very uncomfortable and because he could not keep food down and kept vomiting, he came to the hospital for evaluation. It is noted that when he came to the hospital he had tenderness on exam and elevated white count and significant renal insufficiency. He had also reported that prior to his eating lunch when he had the chicken salad and got sick, he had been in the gym that morning and had been doing a lot of abdominal crunches, and he had a hard workup, and he questioned whether that also could have been the trigger. Otherwise, as I said, the patient does not have longstanding gastrointestinal complaints. He is not usually constipated or having heartburn. He has never had endoscopy or colonoscopy. He has had no significant prior surgery. He has no known drug allergies, and he cannot remember the names of his medications, but he takes something for blood pressure and something for cholesterol as his only medication. He did not take significant aspirin or nonsteroidals. SOCIAL HISTORY: The patient does not smoke. He socially uses alcohol. 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 FAMILY HISTORY: His family history is significant for his mother has heartburn, is the only GI type of complaint. MEDICATION: It looks like here in the hospital, he is currently getting Zofran, Miralax, Norvasc, Dilaudid, Protonix, and IV fluid. PHYSICAL EXAMINATION: Vital signs: He is afebrile, and it appears he has been afebrile throughout the course. He is not tachycardic. His heart rate is 76, his blood pressure is 150/90. General: He is well-developed, well-nourished, healthy-appearing, in no acute distress. Skin: Skin is cool. HEENT: Sclerae anicteric. Neck: Supple. His mouth is kind of dry. His dentition is good. His neck is supple . Abdomen: A little obese, but very soft, and there is no focal tenderness to deep palpation. No masses, rebound, or guarding. Rectal: Reveals the presence of stool that is darkish brown and guaiac negative on my check. LABORATORY DATA: When he came in, as I said his white count was slightly elevated. Today it is down to 9. His hemoglobin and hematocrit of 12.9 over 37.9. He has got an MCV of 96, and 195,000 platelets. Of note, on admission, the white count was 11.4. His chemistries, when he came in his BUN was 24, creatinine 1.9, but then went to 23/2.2, and today his BUN is 21 with a creatinine of 2.4. Otherwise, his liver enzymes are essentially unremarkable. AST 21, ALT 32, alkaline phosphatase 49. His albumin 3.3, the lipase level 200. Other labs that he had when he came in his urinalysis revealed 1+ protein and 1+ blood and was otherwise unremarkable, and it looks like he had a CT scan of the abdomen and pelvis, but this is a very limited study, as it appears it was a stone study, as there was oral contrast but no IV contrast, which certainly limits it from a GI standpoint, but the bowel looked okay. Apparently there was some distention of the stomach without wall thickening. The esophagus appeared a little thickened, but again on the CAT scan this is very tough to assess whether that is just artifact. The liver, spleen, pancreas, gallbladder, adrenals were completely unremarkable. The bowel appeared unremarkable. He had some diverticulosis without evidence of diverticulitis. There was no evidence of an acute fluid collection. There is no fluid in the paracolic gutters, so overall it is really an unremarkable scan. IMPRESSION: It is my impression that the patient is a 40-year-old gentleman with hypertension and hyperlipidemia who comes in with acute onset of hypogastric pain and vomiting after he had eaten some chicken salad, but also after he had a vigorous workout at the gym, and also his CPK was elevated. It is unclear and he came in with significant renal insufficiency or significant worsening of his underlying renal function. It is unclear whether his gastrointestinal symptoms are secondary to the renal findings, or whether he did have some gastrointestinal distress. It does not appear like a typical gastroenteritis because he never ended up having any diarrhea. He moved his bowels this morning normally today, so at the present time he certainly has a nontoxic abdomen, and I would just observe and suspect that as his renal function improves, gastrointestinal symptoms should resolve. As I said, the vomiting may simply have been due to the doubling or nearly tripling of his baseline creatinine. So for now I would slowly advance his diet and observe, continue Flowtron pump inhibition, and we will be available for further management. AUSTIN MORAN M.D. [id number]
--- NOTE | 2016-04-28 12:09 | PN ---
GI Progress Note Subjective: GI Note> Tolerating solids. NO recurrence of pain or vomiting but BP is elevated. - Objective Vital Signs: Vital Signs Temperature 98.8 F 04/28/16 08:00 Pulse Rate 66 04/28/16 08:00 Respiratory Rate 18 04/28/16 08:00 Blood Pressure 163/91 04/28/16 10:00 O2 Sat by Pulse Oximetry (%) 99 04/28/16 08:00 Current Medications Generic Name Dose Route Start Last Admin Trade Name Freq PRN Reason Stop Dose Admin Amlodipine Besylate 10 mg 04/28/16 10:00 04/28/16 11:30 Norvasc - PO Not Given DAILY [facility] Guaifenesin 10 ml 04/27/16 17:29 04/28/16 08:20 Robitussin - PO 10 ml Q6H PRN Administration Hydromorphone HCl 2 mg 04/25/16 04:56 04/25/16 05:15 Dilaudid Injection - IVPB 2 mg Q6H PRN Administration Ondansetron HCl 4 mg 04/25/16 12:07 04/25/16 17:54 Zofran Injection IVPB 4 mg Q4H PRN Administration NAUSEA AND/OR VOMITING Pantoprazole Sodium 40 mg 04/25/16 12:15 04/28/16 09:29 Protonix 40mg Ivpb (Pre-Docked) IVPB 40 mg DAILY [facility] Administration Polyethylene Glycol 17 gm 04/25/16 04:56 Miralax (For Daily Use) - PO DAILY PRN Constitutional: Calm Cardiovascular: Yes: Regular Rate and Rhythm Respiratory: Yes: CTA Bilaterally Gastrointestinal Inspection: Yes: Distention ...Palpate: Yes: Soft, Other (nontender) Labs: CBC, BMP 04/28/16 06:30 04/28/16 06:30 Assessment/Plan Resolved gastric upset. No GI objections to discharge.
[2016-04-28] MEDS: ATENOLOL 25 MG TABLET (FP) PO SCH (14:10)
[2016-04-29 07:21] VITALS: PULSE 69
[2016-04-29 08:42] LABS: ALBUMIN 3.8 g/dl (3.4-5.0); CALCIUM 9.8 mg/dL (8.5-10.1)
[2016-04-29 08:44] LABS: BILIRUBIN,TOTAL 0.5 mg/dL (0.2-1.0); CREATININE 1.6 mg/dL (0.7-1.3); TOT PROT 7.7 g/dl (6.4-8.2)
--- NOTE | 2016-04-29 09:09 | PN ---
Progress Note, Physician Chief Complaint: Pt lying comfortably in bed Pt toleratsd food No abdominal pain,had bowel movement abdominal,renal and bladder ultrasound NL Creatinine level stable D/c home today - Current Medication List Current Medications: Active Medications Amlodipine Besylate (Norvasc -) 10 mg PO DAILY [facility] Last Admin: 04/28/16 11:30 Dose: Not Given Atenolol (Tenormin -) 12.5 mg PO DAILY [facility] Last Admin: 04/28/16 14:10 Dose: 12.5 mg Guaifenesin (Robitussin -) 10 ml PO Q6H PRN Last Admin: 04/28/16 08:20 Dose: 10 ml Hydromorphone HCl (Dilaudid Injection -) 2 mg IVPB Q6H PRN Last Admin: 04/25/16 05:15 Dose: 2 mg Ondansetron HCl (Zofran Injection) 4 mg IVPB Q4H PRN PRN Reason: NAUSEA AND/OR VOMITING Last Admin: 04/25/16 17:54 Dose: 4 mg Pantoprazole Sodium (Protonix -) 40 mg PO DAILY [facility] Polyethylene Glycol (Miralax (For Daily Use) -) 17 gm PO DAILY PRN - Objective Vital Signs: Vital Signs Temperature 98.5 F 04/29/16 07:20 Pulse Rate 69 04/29/16 07:20 Respiratory Rate 20 04/29/16 07:20 Blood Pressure 154/88 04/29/16 07:20 O2 Sat by Pulse Oximetry (%) 99 04/28/16 21:00 Constitutional: Yes: No Distress Eyes: Yes: Conjunctiva Clear HENT: Yes: Atraumatic, Normocephalic Neck: Yes: Supple, Trachea Midline Cardiovascular: Yes: Regular Rate and Rhythm Respiratory: Yes: Regular, CTA Bilaterally Gastrointestinal: Yes: Normal Bowel Sounds, Soft Musculoskeletal: Yes: WNL Extremities: Yes: WNL Edema: No Peripheral Pulses WNL: Yes Neurological: Yes: Alert, Oriented ...Motor Strength: WNL Labs: CBC, BMP 04/28/16 06:30 04/29/16 06:10 Assessment/Plan ARF improved Abdominal pain improved vomiting resolved HTN Hypercholestrolemia PLAN d/c home continue medications f/u with nephrology and pmd rpt labs in 1 wk
[2016-04-29 09:33] VITALS: BP 141/86; TEMP 98.4
[2016-04-29] MEDS: ATENOLOL 25 MG TABLET (FP) PO SCH (09:46)
[2016-04-29] MEDS: amLODIPine BESYLATE 10 MG TABLET (FP) PO SCH (09:46)
[2016-04-29] MEDS ORDERED: PANTOPRAZOLE 40 MG TABLET (FP) PO SCH (10:00)
--- NOTE | 2016-04-29 13:24 | EKG ---
Test Reason : Blood Pressure : / mmHG Vent. Rate : 066 BPM Atrial Rate : 066 BPM P-R Int : 180 ms QRS Dur : 100 ms QT Int : 416 ms P-R-T Axes : 056 034 022 degrees QTc Int : 436 ms NORMAL SINUS RHYTHM NONSPECIFIC T WAVE ABNORMALITY ABNORMAL ECG WHEN COMPARED WITH ECG OF 17-JUN-2014 21:15, NO SIGNIFICANT CHANGE WAS FOUND Confirmed by BRYSON RABAGO MD ([id number]) on 04/29/2016 1:24:30 PM Referred By: Confirmed By:BRYSON RABAGO MD
== END 2016-04-29 09:51 | disposition home or self-care (01) | DRG 684 ==
LOC: JER 18:20 → JERBED 04-25 02:01 → J8W 04-25 03:29
PROVIDERS: ADMIT Family Medicine; ATTEND Family Medicine
DX: N17.9 Acute kidney failure, unspecified (principal); R10.9 Unspecified abdominal pain; I10 Essential (primary) hypertension; E78.5 Hyperlipidemia, unspecified; E86.0 Dehydration; K52.9 Noninfective gastroenteritis and colitis, unspecified; R11.2 Nausea with vomiting, unspecified
CPT/HCPCS: 36415; 71020-TC; 74176-TC; 76705-TC; 76775-TC; 76856-TC; 80053; 81003; 81015; 82150; 82550; 82553; 82570; 83690; 83735; 84100; 84156; 84300; 84550; 85025; 85027; 87086; 93005; 93010; 99284-25; Q9967

== ENCOUNTER 2016-05-14 14:30 | Emergency (ER) | payer OTHER ==
[2016-05-14 14:35] VITALS: BP 134/76; PULSE 90; TEMP 98.8; BMI 29.6
--- NOTE | 2016-05-14 14:54 | PDOC ---
History of Present Illness - General Chief Complaint: Pain Stated Complaint: BAD COUGH Time Seen by Provider: 05/14/16 14:35 - History of Present Illness Initial Comments: 05/14/16 14:53 CHIEF COMPLAINT: cough HISTORY OF PRESENT ILLNESS: 40 yo M with hx of HTN, HLD, and recent acute kidney failure presents to fast track with cough x 2 days. Patient denies fever but reports chills and throat pain. Denies nausea, vomiting, diarrhea. He has taken Nyquil and "herbal medicine" with no relief. No recent travel or sick contacts. PAST MEDICAL HISTORY: Denies past medical history FAMILY HISTORY: Denies SOCIAL HISTORY: Denies tobacco, alcohol, illicit drug use. SURGICAL HISTORY: Denies ALLERGIES: No known drug allergies REVIEW OF SYSTEMS General/Constitutional: Denies fever or chills. Denies weakness, weight change. HEENT: Denies change in vision. Denies ear pain or discharge. Denies sore throat. Cardiovascular: Denies chest pain or shortness of breath. Respiratory: Dry cough x 2 days. Denies wheezing, or hemoptysis. Gastrointestinal: Denies nausea, vomiting, diarrhea or constipation. Denies rectal bleeding. Genitourinary: Denies dysuria, frequency, or change in urination. Musculoskeletal: Denies joint or muscle swelling or pain. Denies neck or back pain. Skin and breasts: Denies rash or easy bruising. PHYSICAL EXAM General Appearance: Well-appearing, appropriately dressed. No apparent distress. HEENT: EOMI, PERRLA, normal ENT inspection, normal voice, TMs normal, pharynx normal. No conjunctival pallor. No photophobia, scleral icterus. Neck: Supple. Trachea midline. No tenderness, rigidity, carotid bruit, stridor , lymphadenopathy, or thyromegaly. Respiratory/Chest: Lungs CTAB. Cardiovascular: RRR. S1, S2. Gastrointestinal/Abdominal: Normal bowel sounds. Abdomen soft, non-distended. No tenderness or rebound tenderness. No organomegaly, pulsatile mass, guarding , hernia, hepatomegaly, splenomegaly. Musculoskeletal/Extremities: Normal inspection. FROM of all extremities, normal capillary refill. Pelvis Stable. No CVA tenderness. No tenderness to extremities, pedal edema, swelling, erythema or deformity. Integumentary: Appropriate color, dry, warm. No cyanosis, erythema, jaundice or rash Neurologic: server engineer II-XII intact. Fully oriented, alert. Appropriate mood/affect. Motor strength 5/5. No appreciable EOM palsy, facial droop or sensory deficit. 05/14/16 14:58 Past History - Past Medical History Allergies/Adverse Reactions: Allergies Allergy/AdvReac Type Severity Reaction Status Date / Time No Known Allergies Allergy Verified 05/14/16 14:34 Home Medications: Ambulatory Orders No Home Medications 0 dose .ROUTE UTDICT 02/14/12 Amlodipine Besylate [Norvasc -] 10 mg PO DAILY #30 tablet 04/29/16 Atenolol [Tenormin -] 12.5 mg PO DAILY #390 tablet 04/29/16 Guaifenesin/Codeine Phosphate [Guaifenesin AC Cough Syrup] 15 ml PO TID PRN #1 bottle MDD 45 mL 05/14/16 HTN: Yes Hypercholesterolemia: Yes - Immunization History Immunization Up to Date: Yes - Psycho/Social/Smoking Cessation Hx Anxiety: No Suicidal Ideation: No Smoking Status: No Smoking History: Never smoked Have you smoked in the past 12 months: No Number of Cigarettes Smoked Daily: 0 Information on smoking cessation initiated: No Hx Alcohol Use: No Drug/Substance Use Hx: No Substance Use Type: None *Physical Exam - Vital Signs Last Vital Signs Temp Pulse Resp BP Pulse Ox 98.8 F 90 18 134/76 98 05/14/16 14:32 05/14/16 14:32 05/14/16 14:32 05/14/16 14:32 05/14/16 14:32 Medical Decision Making - Medical Decision Making 05/14/16 14:59 40 yo M with hx of HTN, HLD, and renal failure presents to fast track with dry cough x 2 days. -Flu swab Flu negative. Will discharge to home with Guaifenesin AC. Advised patient to take medication as prescribed and f/u with PCP if symptoms persist. Advised patient of signs and symptoms for return to ER; patient verbalized understanding and agrees to plan. *DC/Admit/Observation/Transfer Diagnosis at time of Disposition: Bronchitis - Discharge Dispostion Disposition: HOME Condition at time of disposition: Good Admit: No - Prescriptions Prescriptions: Guaifenesin/Codeine Phosphate [Guaifenesin AC Cough Syrup] 15 ml PO TID PRN #1 bottle MDD 45 mL PRN Reason: Cough - Referrals Referrals: Luis Daniel Mathew MD [Primary Care Provider] - - Patient Instructions Printed Discharge Instructions: DI for Acute Bronchitis Additional Instructions: Please take medication as prescribed. Do not drive or operate machinery while taking this medication as it may make you drowsy. You may continue taking Dayquil or Nyquil. If you develop fever, vomiting, diarrhea, or any new or worsening symptoms, please return to the ER. - Post Discharge Activity Work/School Note: Back to Work
== END 2016-05-14 15:59 | disposition home or self-care (01) ==
LOC: JERFT 14:30
DX: J40 Bronchitis, not specified as acute or chronic (principal); I10 Essential (primary) hypertension; E78.00 Pure hypercholesterolemia, unspecified
CPT/HCPCS: 87804; 99281-25

== ENCOUNTER 2019-01-23 12:43 | Emergency (ER) | payer OTHER ==
[2019-01-23 12:57] VITALS: BP 147/85; PULSE 69; TEMP 97.8; BMI 28.8
[2019-01-23] MEDS ORDERED: TETRACAINE 0.5% HCL 0.6ML DROPPER.BOTTLE OS ONE (14:30)
[2019-01-23] MEDS ORDERED: TETRACAINE 0.5% OPHTH SOLN 2 ML BOTTLE ONE (14:31)
[2019-01-23] MEDS ORDERED: FLUORESCEIN NA 1 EA STRIP ONE (14:33)
[2019-01-23] MEDS ORDERED: DIPHTH,PERTUSS(ACELL),TET 0.5 ML DISP.SYRIN IM ONE ×2 (14:35→14:43)
--- NOTE | 2019-01-23 14:39 | PDOC ---
History of Present Illness - General Chief Complaint: Eye Problem Stated Complaint: EYE SWOLLEN Time Seen by Provider: 01/23/19 14:01 - History of Present Illness Initial Comments: 01/23/19 14:36 43-year-old male with a past medical history of hypertension presents for left eye irritation. Patient states he was cutting a turkey claw when he felt the piece of cloth scratch his left eye this occurred yesterday Past History - Past Medical History Allergies/Adverse Reactions: Allergies Allergy/AdvReac Type Severity Reaction Status Date / Time No Known Allergies Allergy Verified 05/14/16 14:34 Home Medications: Ambulatory Orders No Home Medications 0 dose .ROUTE UTDICT 02/14/12 Amlodipine Besylate [Norvasc -] 10 mg PO DAILY #30 tablet 04/29/16 Atenolol [Tenormin -] 12.5 mg PO DAILY #390 tablet 04/29/16 Codeine Phosphate/Guaifenesin [Guaifenesin AC Cough Syrup] 15 ml PO TID PRN #1 bottle MDD 45 mL 05/14/16 Tobramycin 0.3% Ophth Soln [Tobrex Ophthalmic Solution -] 1 drop OU Q4HWA #1 bottle 01/23/19 COPD: No HTN: Yes Hypercholesterolemia: Yes - Immunization History Immunization Up to Date: Yes - Psycho Social/Smoking Cessation Hx Smoking Status: No Smoking History: Never smoked Have you smoked in the past 12 months: No Number of Cigarettes Smoked Daily: 0 Information on smoking cessation initiated: No Hx Alcohol Use: No Drug/Substance Use Hx: No Substance Use Type: None Review of Systems - Review of Systems Constitutional: No: Fever HEENTM: Yes: See HPI, Eye Pain, Blurred Vision, Tearing *Physical Exam - Vital Signs Last Vital Signs Temp Pulse Resp BP Pulse Ox 97.8 F 69 20 147/85 98 01/23/19 12:55 01/23/19 12:55 01/23/19 12:55 01/23/19 12:55 01/23/19 12:55 - Physical Exam 01/23/19 14:37 Tetracaine was instilled into the left eye fluorescein was instilled as well. There is a corneal abrasion at the center of the left eye no foreign body is visualized Medical Decision Making - Medical Decision Making 01/23/19 14:37 Tobramycin for corneal abrasion follow-up with ophthalmology tetanus shot updated Discharge - Discharge Information Problems reviewed: Yes Clinical Impression/Diagnosis: Corneal abrasion Condition: Stable Disposition: HOME - Admission No - Additional Discharge Information Prescriptions: Tobramycin 0.3% Ophth Soln [Tobrex Ophthalmic Solution -] 1 drop OU Q4HWA #1 bottle - Follow up/Referral Referrals: Luis Daniel Mathew MD [Primary Care Provider] - Ranjit Kc MD [Staff Physician] - - Patient Discharge Instructions Patient Printed Discharge Instructions: DI for Corneal Abrasion, Corneal Abrasion Additional Instructions: Please use the antibiotic drops as directed. Your tetanus shot was updated today. Return to the emergency room for worsening symptoms. Without fail please follow-up with ophthalmology in 1 to 2 days for further evaluation and treatment options. - Post Discharge Activity Work/Back to School Note: Back to Work
== END 2019-01-23 14:54 | disposition home or self-care (01) ==
LOC: JERFT 12:43
DX: S05.02XA Injury of conjunctiva and corneal abrasion without foreign body, left eye, initial encounter (principal); W22.8XXA Striking against or struck by other objects, initial encounter; Y93.G1 Activity, food preparation and clean up; Y92.018 Other place in single-family (private) house as the place of occurrence of the external cause; Y99.8 Other external cause status
CPT/HCPCS: 90715; 99281-25

== ENCOUNTER 2019-12-28 07:53 | Emergency (ER) | payer OTHER ==
[2019-12-28 08:07] VITALS: BP 156/96; PULSE 80; TEMP 97.8; BMI 28.8
[2019-12-28] MEDS ORDERED: DEXAMETHASONE SOD PHOSPHATE 10 MG/1 ML VIAL IM ONE (09:33)
[2019-12-28] MEDS ORDERED: FAMOTIDINE 20 MG TABLET PO ONE (09:33)
[2019-12-28] MEDS ORDERED: DEXAMETHASONE SOD PHOSPHATE 10 MG/1 ML VIAL ONE (09:36)
[2019-12-28] MEDS ORDERED: FAMOTIDINE 20 MG TABLET ONE (09:36)
[2019-12-28] MEDS ORDERED: hydrOXYzine PAMOATE 50 MG CAPSULE (FP) PO ONE (11:05)
[2019-12-28] MEDS ORDERED: hydrOXYzine PAMOATE 50 MG CAPSULE (FP) ONE (11:17)
== END 2019-12-28 12:28 | disposition home or self-care (01) ==
LOC: JER 07:53
PROC: 3E0233Z Introduction of Anti-inflammatory into Muscle, Percutaneous Approach (ICD-10-PCS; principal; 2019-12-28)
DX: L29.9 Pruritus, unspecified (principal)
CPT/HCPCS: 99284-25; J1100

== ENCOUNTER 2023-01-05 07:06 | Emergency (ER) | payer OTHER ==
[2023-01-05 07:18] VITALS: RESP 18; BMI 29.7
[2023-01-05] MEDS ORDERED: IBUPROFEN 600 MG TABLET (FP) PO ONE ×2 (07:38→07:51)
[2023-01-05] MEDS ORDERED: LIDOCAINE 5% TOPICAL PATCH TP ONE (07:39)
[2023-01-05] MEDS ORDERED: ACETAMINOPHEN 325 MG TABLET (FP) PO ONE (07:39)
[2023-01-05] MEDS ORDERED: ACETAMINOPHEN 325 MG TABLET (FP) ONE (07:50)
[2023-01-05] MEDS ORDERED: LIDOCAINE 4% PATCH TP ONE (07:53)
[2023-01-05 08:35] LABS: EOS % 1.3 % (0-4.5); HEMOGLOBIN 14.2 GM/dL (11.7-16.9); LYMPH % 5.3 % (8-40); MCH 32.5 pg (25.7-33.7); MCHC 33.8 g/dl (32.0-35.9); MEAN CELL VOLUME 96.2 fl (80-96); MEAN PLT VOLUME 7.6 fl (7.5-11.1); MONO % 10.8 % (3.8-10.2); NEUT % 81.6 % (42.8-82.8); PLATELET COUNT 229 10^3/uL (134-434); RBC 4.37 M/mm3 (4.00-5.60); RDW 12.5 % (11.9-15.9); WHITE BLOOD COUNT 9.3 K/mm3 (4.0-10.0)
[2023-01-05 09:25] LABS: POTASSIUM 3.6 mmol/L (3.5-5.1)
[2023-01-05 09:27] LABS: ALBUMIN 4.3 g/dl (3.4-5.0); CALCIUM 9.1 mg/dL (8.5-10.1)
[2023-01-05 09:32] LABS: BILIRUBIN,TOTAL 0.7 mg/dL (0.2-1); TOT PROT 7.7 g/dl (6.4-8.2)
[2023-01-05 09:48] VITALS: BP 150/68; PULSE 80; TEMP 99
== END 2023-01-05 09:55 | disposition home or self-care (01) ==
LOC: JER 07:06
DX: U07.1 COVID-19 (principal); M25.511 Pain in right shoulder; R07.0 Pain in throat; R68.83 Chills (without fever)
CPT/HCPCS: 0241U-QW; 36415; 71046-TC-FY; 73030-TC-RT-FY; 80053; 84484; 85025; 93005; 93010; 99285-25

== ENCOUNTER 2023-02-24 04:16 | Day surgery (SDC) | payer OTHER ==
[2023-02-18 16:11] VITALS: BMI 29.6
[2023-02-24] MEDS ORDERED: SUCCINYLCHOLINE CHLORIDE 200 MG/10 ML SYRINGE ONE (07:36)
[2023-02-24] MEDS ORDERED: DEXAMETHASONE SOD PHOSPHATE 4 MG/1 ML VIAL ONE (07:36)
[2023-02-24] MEDS ORDERED: SODIUM CHLORIDE 0.9% P/F 10 ML VIAL IJ ONE (07:36)
[2023-02-24] MEDS ORDERED: ceFAZolin SODIUM 1 GM VIAL ONE (07:36)
[2023-02-24] MEDS ORDERED: ONDANSETRON 4 MG/2 ML VIAL ONE (07:36)
[2023-02-24] MEDS ORDERED: PROPOFOL 40 ML ONE (07:42)
[2023-02-24] MEDS ORDERED: MIDAZOLAM HCL 2 MG/2 ML SINGLE DOSE VIAL ONE (07:44)
[2023-02-24] MEDS ORDERED: ceFAZolin SODIUM 1 GM VIAL IVPB ONE (08:40)
[2023-02-24] MEDS ORDERED: NOREPINEPHRINE BITARTRATE 4 MG/4 ML ML IV ONE (08:43)
[2023-02-24] MEDS ORDERED: oxyCODONE HCL 5 MG TABLET PO PRN (10:52)
[2023-02-24] MEDS ORDERED: ONDANSETRON 4 MG/2 ML VIAL IVPUSH PRN (10:52)
[2023-02-24] MEDS ORDERED: LACTATED RINGERS SOLUTION 1,000 ML IV SCH (11:00)
[2023-02-24 12:21] VITALS: TEMP 97.3
[2023-02-24] MEDS ORDERED: oxyCODONE HCL 5 MG TABLET ONE (12:47)
[2023-02-24 14:06] VITALS: BP 136/80; PULSE 78; RESP 16
== END 2023-02-24 14:25 | disposition home or self-care (01) ==
LOC: JASU-SURG 04:16
PROVIDERS: ATTEND Orthopaedic Surgery
PROC: 0RNJ4ZZ Release Right Shoulder Joint, Percutaneous Endoscopic Approach (ICD-10-PCS; principal; 2023-02-24 08:00)
DX: M75.41 Impingement syndrome of right shoulder (principal); M75.101 Unspecified rotator cuff tear or rupture of right shoulder, not specified as traumatic
CPT/HCPCS: 94760; C1713

== ENCOUNTER 2023-07-22 08:42 | Emergency (ER) | payer OTHER, BC ==
[2023-07-22 09:10] VITALS: BP 150/106; PULSE 82; RESP 20; TEMP 98.2; BMI 30.5
[2023-07-22] MEDS ORDERED: TETRACAINE 0.5% OPHTH SOLN 2 ML BOTTLE ONE (09:10)
[2023-07-22] MEDS ORDERED: FLUORESCEIN NA 1 EA STRIP ONE (09:11)
== END 2023-07-22 09:30 | disposition home or self-care (01) ==
LOC: FER 08:42
DX: S05.01XA Injury of conjunctiva and corneal abrasion without foreign body, right eye, initial encounter (principal); X58.XXXA Exposure to other specified factors, initial encounter
CPT/HCPCS: 99283-25